=== PATIENT | male | born 2005 | race African-American/Black ===

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

== ENCOUNTER 2025-01-16 16:13 | Emergency (ER) | payer OTHER, SELFPAY ==
--- OUTSIDE RECORDS SUMMARY | 2025-01-16 16:27 | XMS REPORT | Continuity of Care Document ---
Author Name Unknown Address [address] [facility] [place], [place] [id number] [place] [address] [facility] Address [address] [facility] [address] [place] [address] Care Team Providers Care Dance Historian Name Role Phone SUE CANTU Attending Clinician Unavailab le LAB90 Attending Clinician Unavailable SCHAUBROECK_L Attending Clinician Unavailable SCHAUBROECK_L Admitting Clinician Unavailable Payers Payer Name Policy Type Policy Number Effective Date Expirati on Date Source [facility] MAYNOR HERNANDEZ COPAY FOCUS 9 [id number] 2023 00:00:00 Problems Condition Name Condition Details Condition Category Status Onset Date Resolution Date Last Treatment Date Treating Clinician Comments Source Well adult exam Well adult exam Disease Active 10-09 00:00: 00 Crescencio metz ADHD ADHD Disease Active 10-09 00:00: 00 Crescencio metz Social History Social Habit Start Date Stop Date Quantity Comments Source Sexual orientation Mumtaz Dixon - External Alcohol intake 2023-10-09 00:00:00 2023-10-09 00:00:00 Ex-drinker (finding) Crescencio Dixon - External Tobacco use and exposure 2023-10-08 00:00:00 2023-10-08 00:00:00 Smokeless tobacco non-user Crescencio Dixon - External History of Social function 2023-10-08 00:00:00 2023-10-08 00:00:00 Crescencio Dixon - External Sex Assigned At 2005 00:00:00 2005 00:00:00 Crescencio Dixon - External Smoking Status Start Date Stop Date Source Never smoked tobacco Crescencio Dixon - External Vital Signs Vital Name Observation Time Observation Value Comments S ource Systolic blood pressure 2023-10-09 16:44:00 122 mm[Hg] Crescencio Burks ld - External Diastolic blood pressure 2023-10-09 16:44:00 78 mm[Hg] Crescencio Burks ld - External Heart rate 2023-10-09 16:44:00 70 /min Batsheva Dixon - External Body temperature 2023-10-09 16:44:00 36.72 Mariel Crescencio Dixon - External Respiratory rate 2023-10-09 16:44:00 18 /min Crescencio Dixon - External Body height 2023-10-09 16:44:00 177.8 cm Nicole Dixon - External Body weight 2023-10-09 16:44:00 80.457 kg Nicole Ferreiraold - External BMI 2023-10-09 16:44:00 25.45 kg/m2 Nicole Dixon - External Oxygen saturation in Arterial blood by Pulse oximetry 2023-10-09 16:44:00 99 /min Crescencio Burks ld - External Encounters Start Date/Time End Date/Time Encounter Type Admission Type Attending [facility] Facility Care Department Encounter ID Source 2023-10-11 00:00:00 2023-10-11 00:00:00 Outpatient SUE CANTU [id number] Crescencio Dixon 2023-10-09 11:30:00 2023-10-09 11:30:00 Outpatient LAB90 CRESCENCIO PRATHER [id number] Crescencio rudialicja 2023-10-09 10:30:00 2023-10-09 10:30:00 Outpatient PEPE SUE PRATHER [id number] Crescencio Dixon 2021-07-19 05:48:00 2021-07-19 05:48:00 Outpatient SCHAUBROECK _L [facility] [id number] [facility] Notes Date/Time Note Provider Source 2023-10-09 10:47:56 Chief Complaint Patient presents with Physical Fasting for labs Angeles Grant LVN [facility]
[2025-01-16 17:27] LABS: ALT/SGPT 35 U/L (16-61); AST/SGOT 18 U/L (15-37); Albumin 3.8 g/dL (3.4-5.0); Alkaline Phosphatase 89 U/L (45-117); BUN Blood Urea Nitrogen 13 mg/dL (7-18); Bicarbonate 24 mEq/L (21-32); Bilirubin Direct 0.2 mg/dL (0-0.2); Bilirubin Indirect, Calculated 0.9 mg/dL (0.2-0.8); Bilirubin Total 1.1 mg/dL (0.2-1.0); Creatine Phosphokinase 407 U/L (39-308); Globulin 3.8 g/dL (2.3-3.5); Glomerular Filtration Rate 77 ml/min (=/>90); Glucose Level 81 mg/dL (74-106); Magnesium 2.4 mg/dL (1.6-2.4); Protein, Total 7.6 g/dL (6.4-8.2); Sodium Level 137 mEq/L (136-145)
[2025-01-16 17:29] LABS: Troponin High Sensitivity < 3.0 pg/mL (<58.9)
[2025-01-16] MEDS ORDERED: NA CHLORIDE 0.9% 1,000 ML ONE (17:38)
--- NOTE | 2025-01-16 18:32 | RAD REPORT ---
EXAMINATION: Head C Spine Mpr Wo Con CLINICAL INDICATION: Male, 19 years old. seziure vs syncope, head trauma TECHNIQUE: Axial CT images from the skull base to the vertex without intravenous contrast. Axial CT i mages through the cervical spine were obtained without intravenous contrast. Sagittal and coronal reformatted images were created from the data set. Coronal and sagittal reformatted images were creat ed from the data set. One or more of the following dose reduction techniques were used: Automated exposure control, adjustment of the mA and/or kV according to patient size, and/or iterative reconstr uction. Unless otherwise specified, incidental findings do not require dedicated imaging follow-up. [id number]. COMPARISON: No prior exam. FINDINGS: Head: INTRACRANIAL: No acute intracranial hemorrhage. No hydrocephalus. No mass effect or midline shift. No significant white matter disease.Cavum septum pellucidum. VASCULATURE: No visualized abnormalities in the arteries or dural venous sinuses. SCALP/SKULL: No calvarial fracture identified. No acute soft tissue abnormality. SINUSES: The visualized paranasal sinuses are mostly clear. No significant mastoid fluid. Cervical spine: ALIGNMENT: The cervical spine has normal alignment without scoliosis or spondylolisthesis. BONE: Vertebral body heights are maintained. No aggressive osseous lesions. DEGENERATIVE: No significant focal degenerative changes. SOFT TISSUE: No significant abnormalities in the soft tissue of the neck. The visualized lung apices are clear. IMPRESSION: No acute intracranial abnormality. No acute fracture or traumatic malalignment of the cervical spine.
[2025-01-16 18:33] LABS: Absolute Eosinophils 0.1 K/uL (0-0.5); Absolute Lymphocytes (CBC) 1.8 K/uL (0.7-4.9); Absolute Monocytes 0.5 K/uL (0.1-1.3); Absolute Neutrophil 3.3 K/uL (1.8-8.0); Basophils % 0.4 % (0-1.3); Eosinophils % 1.4 % (0-4.4); Hematocrit 42.9 % (39.6-49.0); Hemoglobin 14.6 g/dL (13.6-17.9); Lymphocytes % 32.1 % (15.3-44.8); MCH 30.6 pg (27.0-35.0); MCHC 34.1 g/dL (32.0-36.0); MCV 89.7 fL (80-100); MPV 9.3 fL (7.6-11.3); Monocytes % 9.1 % (3.3-12.3); Nucleated Red Blood Cells % 0.3 % (0-0); Platelets 183 thou/uL (152-406); RBC Red Blood Cell Count 4.79 M/uL (4.33-5.43); Red Cell Distribution Width 14.3 % (12.1-15.2)
--- NOTE | 2025-01-16 19:30 | ER ---
Nurse's Notes [facility] Name: Paul Uribe Age: 19 yrs Sex: Male : 2005 Arrival Date: 01/16/2025 Time: 16:13 Bed 3 Private MD: Diagnosis: Other seizures;Epileptic seizures related to external causes, not intractable Presentation: 01/16 16:22 Chief complaint: EMS states: Was at movie theatre with girlfriend, had what was ph described as seizure like activity, hit R side of forehead, was A\T\O 2 on scene, HR 120s, pt oriented x 4 upon arrival. Coronavirus screen: Vaccine status: Patient reports being unvaccinated. Ebola Screen: No symptoms or risks identified at this time. Initial Sepsis Screen: Does the patient meet any 2 criteria? No. Patient's initial sepsis screen is negative. Does the patient have a suspected source of infection? No. Patient's initial sepsis screen is negative. Risk Assessment: Do you want to hurt yourself or someone else? Patient reports no desire to harm self or others. Onset of symptoms was January 16, 2025. 16:22 Method Of Arrival: EMS: [facility] 16:22 Acuity: KARISSA 2 ph Triage Assessment: 16:26 General: Appears in no apparent distress. comfortable, well groomed, Behavior is calm, ph cooperative, appropriate for age. Pain: Denies pain. Neuro: Level of Consciousness is awake, alert, obeys commands, Oriented to person, place, time, situation. Neuro: Seizure activity reported prior to arrival. Cardiovascular: Capillary refill < 3 seconds in bilateral fingers Patient's skin is warm and dry. Respiratory: Airway is patent Respiratory effort is even, unlabored. GI: No signs and/or symptoms were reported involving the gastrointestinal system. Derm: Skin is pink, warm \T\ dry. Musculoskeletal: Circulation, motion, and sensation intact. Range of motion: intact in all extremities. Injury Description: Abrasion sustained to lateral canthus of left eye. Historical: - Allergies: 16:25 No Known Allergies; ph - PMHx: 16:25 adhd; ph - Immunization history:: Adult Immunizations unknown. - Infectious Disease History:: Denies. - Social history:: Smoking status: Patient denies any tobacco usage or history of. - Family history:: not pertinent. Screenin:26 [facility] ED Fall Risk Assessment (Adult) History of falling in the last 3 months, ph including since admission No falls in past 3 months (0 pts) Confusion or Disorientation No (0 pts) Intoxicated or Sedated No (0 pts) Impaired Gait No (0 pts) Mobility Assist Device Used No (0 pt) Altered Elimination No (0 pt) Score/Fall Risk Level 0 - 2 = Low Risk Oriented to surroundings, Maintained a safe environment, Hourly rounding (assess needs \T\ fall precautionary measures) done, Used ambulatory aids as needed (educated on \T\ assisted with). Abuse screen: Denies threats or abuse. Denies injuries from another. Nutritional screening: No deficits noted. Tuberculosis screening: No symptoms or risk factors identified. Assessment: 17:06 General: SEE TRIAGE ASSESSMENT. ph 18:33 Reassessment: Patient appears in no apparent distress at this time. Patient and/or ph family updated on plan of care and expected duration. Pain level reassessed. Patient is alert, oriented x 3, equal unlabored respirations, skin warm/dry/pink. 19:45 Reassessment: Patient and/or family updated on plan of care and expected duration. Pain ph level reassessed. Patient is alert, oriented x 3, equal unlabored respirations, skin warm/dry/pink. Patient states symptoms have improved. Vital Signs: 16:22 BP 147 / 84; Pulse 95; Resp 18; Temp 98.2; Pulse Ox 99% on R/A; Weight 81.65 kg; Height ph 5 ft. 11 in. ; 17:06 BP 143 / 88; Pulse 72; Resp 18; Pulse Ox 99% on R/A; ph 18:33 BP 143 / 83; Pulse 74; Resp 18; Pulse Ox 97% on R/A; ph 19:45 BP 145 / 84; Pulse 74; Resp 18 S; Pulse Ox 100% on R/A; ph 16:22 Body Mass Index 25.10 (81.65 kg, 180.34 cm) ph Vitals: 17:06 Cardiac Rhythm Assessment Sinus rhythm. ph Tristan Coma Score: 16:26 Eye Response: spontaneous(4). Motor Response: obeys commands(6). Verbal Response: ph oriented(5). Total: 15. ED Course: 16:22 Patient arrived in ED. ph 16:25 Triage completed. ph 16:26 Arm band placed on Patient placed in an exam room, on a stretcher, on pulse oximetry. ph 16:26 Patient has correct armband on for positive identification. Bed in low position. Call ph light in reach. Side rails up X2. Seizure precautions initiated. Pulse ox on. NIBP on. Door closed. Noise minimized. 16:27 Rafa Barrett MD is Attending Physician. rt 16:28 Chuy Bernard, RN is Primary Nurse. bp 17:05 Initial lab(s) drawn, by me, sent to lab. EKG done, by ED staff, reviewed by Raaf Barrett MD. Missed attempt(s): 20 gauge in right antecubital area. Bleeding controlled, band aid applied, catheter tip intact. Inserted saline lock: 22 gauge in left antecubital area, using aseptic technique. Blood collected. Flushed with 10 mL NS. 18:12 CT Head C Spine In Process Unspecified. EDMS 19:28 Ino Romero MD is Referral Physician. bo1 19:46 Provided Education on: FOLLOW [employer] . ph 19:46 No provider procedures requiring assistance completed. ph 19:58 IV discontinued, intact, bleeding controlled, No redness/swelling at site. Pressure ha1 dressing applied. Administered Medications: 17:54 Drug: NS 0.9% IV 1000 ml IV at 1000 ml once; to be given as a bolus over 60 minutes ph Route: IV; Rate: 1000 ml; Site: left antecubital; 19:47 Follow up: Response: No adverse reaction; IV Status: Completed infusion ph Medication: 16:26 VIS not applicable for this client. ph Outcome: 19:30 Discharge ordered by . bo1 19:57 Discharged to home ambulatory, with family, ha1 19:57 Condition: stable 19:57 Discharge instructions given to patient, family, Instructed on discharge instructions, follow up and referral plans. Demonstrated understanding of instructions, follow-up care, 19:58 Patient left the ED. ha1 Signatures: Dispatcher [employer]DA[employer] Yasmine Gibson RN RN ph Peltier, Brian, RN RN bp Ayala, Heidy, RN RN ha1 Rafa Barrett MD MD rt OeiJian MD MD bo1
--- NOTE | 2025-01-16 19:30 | EDPHYS ---
Physician Documentation [facility] Name: Paul Uribe Age: 19 yrs Sex: Male : 2005 Arrival Date: 01/16/2025 Time: 16:13 Bed 3 Private MD: ED Physician Rafa Barrett HPI: 01/16 17:09 This 19 yrs old Black Male presents to ER via EMS with complaints of Probable Seizure. rt 17:09 Patient was at a movie theater with his girlfriend, when he reportedly had a convulsive rt activity hitting his head Patient states that he did not have a seizure, that he fell asleep but it was reported that he was shaking activity. There was an episode of confusion following this, has since resolved, patient is back to baseline, denies any complaints currently. Symptoms are moderate in severity, no other aggravating or elevating factors.. . Historical: - Allergies: 16:25 No Known Allergies; ph - PMHx: 16:25 adhd; ph - Immunization history:: Adult Immunizations unknown. - Infectious Disease History:: Denies. - Social history:: Smoking status: Patient denies any tobacco usage or history of. - Family history:: not pertinent. ROS: 17:09 Constitutional: Negative for fever, chills, and weight loss, Cardiovascular: Negative rt for chest pain, palpitations, and edema, Respiratory: Negative for shortness of breath, cough, wheezing, and pleuritic chest pain, Abdomen/GI: Negative for abdominal pain, nausea, vomiting, diarrhea, and constipation, MS/Extremity: Negative for injury and deformity, 17:09 Neuro: Positive for Convulsive activity, loss of consciousness, Exam: 17:09 Constitutional: This is a well developed, well nourished patient who is awake, alert, rt and in no acute distress. Chest/axilla: Normal chest wall appearance and motion. Nontender with no deformity. No lesions are appreciated. Cardiovascular: Regular rate and rhythm with a normal S1 and S2. No gallops, murmurs, or rubs. Normal PMI, no JVD. No pulse deficits. Respiratory: Lungs have equal breath sounds bilaterally, clear to auscultation and percussion. No rales, rhonchi or wheezes noted. No increased work of breathing, no retractions or nasal flaring. Abdomen/GI: Soft, non-tender, with normal bowel sounds. No distension or tympany. No guarding or rebound. No evidence of tenderness throughout. Skin: Warm, dry with normal turgor. Normal color with no rashes, no lesions, and no evidence of cellulitis. MS/ Extremity: Pulses equal, no cyanosis. Neurovascular intact. Full, normal range of motion. Neuro: Awake and alert, GCS 15, oriented to person, place, time, and situation. Cranial nerves II-XII grossly intact. Motor strength 5/5 in all extremities. Sensory grossly intact. Cerebellar exam normal. Normal gait. 17:09 Head/face: Abrasion with mild swelling over left eye, no other external signs of trauma, extraocular muscles are intact. 17:09 ECG was reviewed by the Attending Physician. Vital Signs: 16:22 BP 147 / 84; Pulse 95; Resp 18; Temp 98.2; Pulse Ox 99% on R/A; Weight 81.65 kg; Height ph 5 ft. 11 in. ; 17:06 BP 143 / 88; Pulse 72; Resp 18; Pulse Ox 99% on R/A; ph 18:33 BP 143 / 83; Pulse 74; Resp 18; Pulse Ox 97% on R/A; ph 19:45 BP 145 / 84; Pulse 74; Resp 18 S; Pulse Ox 100% on R/A; ph 16:22 Body Mass Index 25.10 (81.65 kg, 180.34 cm) ph Garfield Coma Score: 16:26 Eye Response: spontaneous(4). Motor Response: obeys commands(6). Verbal Response: ph oriented(5). Total: 15. MDM: 16:27 Medical Screening Exam initiated rt 19:26 Differential diagnosis: seizure, New onset - asleep on sig other's shoulder while at bo1 the movies. Data reviewed: vital signs, lab test result(s), radiologic studies, CT scan. ED course: No further seizure other than the 1st episode. Pt with bite to tongue on the left side. No incontinence.. 19:27 ED course: Recommend MRI and EEG with neuro MD appt.. bo1 01/16 16:34 Order name: Basic Metabolic Panel; Complete Time: 17:38 rt 01/16 16:34 Order name: CBC with Diff; Complete Time: 19:13 rt 05/16 16:34 Order name: LFT's; Complete Time: 17:38 rt 01/16 16:34 Order name: Magnesium; Complete Time: 17:38 rt 01/16 16:34 Order name: Troponin HS; Complete Time: 17:38 rt 01/16 16:34 Order name: CPK; Complete Time: 17:38 rt 01/16 16:34 Order name: CT Head C Spine; Complete Time: 19:13 rt 01/16 16:34 Order name: EKG; Complete Time: 16:35 rt 01/16 16:34 Order name: Cardiac monitoring; Complete Time: 17:04 rt 01/16 16:34 Order name: EKG - Nurse/Tech; Complete Time: 17:04 rt 01/16 16:34 Order name: IV Saline Lock; Complete Time: 17:04 rt 01/16 16:34 Order name: Labs collected and sent; Complete Time: 17:04 rt 01/16 16:34 Order name: O2 Per Protocol; Complete Time: 17:04 rt 01/16 16:34 Order name: O2 Sat Monitoring; Complete Time: 17:04 rt EC:09 Rate is 77 beats/min. Rhythm is regular, Normal Sinus Rhythm with No ectopy, Early rt repolarization is present. Right axis deviation noted. [place] interval is normal. QRS interval is normal. QT interval is normal. No Q waves. No ST changes noted. Administered Medications: 17:54 Drug: NS 0.9% IV 1000 ml IV at 1000 ml once; to be given as a bolus over 60 minutes ph Route: IV; Rate: 1000 ml; Site: left antecubital; 19:47 Follow up: Response: No adverse reaction; IV Status: Completed infusion ph Disposition Summary: 01/16/25 19:30 Discharge Ordered Notes: Location: Home bo1 Problem: new bo1 Symptoms: have improved bo1 Condition: Stable bo1 Diagnosis - Other seizures bo1 - Epileptic seizures related to external causes, not intractable bo1 Followup: bo1 - With: Ino Romero MD - When: Upon discharge from the Emergency Department - Reason: Recheck today's complaints, Continuance of care Discharge Instructions: - Discharge Summary Sheet bo1 - Seizure, Adult bo1 - Seizure, Adult, [id number] bo1 Forms: - Medication Reconciliation Form bo1 - Antibiotic Education bo1 - Prescription Opioid Use bo1 - Patient Portal Instructions bo1 - Leadership Thank You Letter bo1 Signatures: Dispatcher [employer] Yasmine Avendano, RN RN ph Rafa Barrett MD MD rt Jian Jaffe MD MD bo1 Corrections: (The following items were deleted from the chart) 16:35 16:35 Head C Spine MPR Wo Con+CT.RAD.BRZ ordered. EDMS EDMS
[2025-01-16 20:28] VITALS: TEMP 98.2
[2025-01-16 20:31] VITALS: BP 145/84; O2SAT 100
== END 2025-01-16 19:58 | disposition home or self-care (01) ==
LOC: ER 16:13
DX: G40.509 Epileptic seizures related to external causes, not intractable, without status epilepticus (principal)
CPT/HCPCS: 36415; 70450; 72125; 80048; 80076; 82550; 83735; 84484; 85025; 93005; 96360; 96361; 99284; J7030